=== PATIENT | female | born 1960 | race Caucasian/White ===

== ENCOUNTER 2017-02-02 06:46 | Day surgery (SDC) | payer MEDICAID ==
[2017-02-02] MEDS ORDERED: Sodium Chloride 0.9% 1,000 ML IV SCH (07:30)
[2017-02-02] MEDS ORDERED: Midazolam 1 MG/ML 2 ML SDV ONE (08:04)
[2017-02-02] MEDS ORDERED: fentaNYL 100 MCG/2 ML SDV ONE (08:04)
[2017-02-02] MEDS ORDERED: Propofol 200 MG/20 ML SDV ONE (08:04)
[2017-02-02 09:48] VITALS: BP 127/78
--- NOTE | 2017-02-02 12:46 | OR ---
DATE OF PROCEDURE: 02/02/2017 PROCEDURE: Colonoscopy. FINDINGS: Sigmoid colon polyp, approximately 8 mm, completely removed using hot snare. COMPLICATION: None. LOCATION MAN: None. ANESTHESIA: MAC. PREOPERATIVE DIAGNOSIS: Screening colonoscopy. POSTOPERATIVE DIAGNOSIS: Screening colonoscopy. PROCEDURE IN DETAIL: The patient was placed in left lateral decubitus position. Digital rectal exam was performed without abnormality. The scope was then introduced and advanced atraumatically to the ileocecal valve. A photo was taken. The scope was brought back through the remainder of the colon. The patient had 1 polyp, which was completely removed using hot snare. No abnormalities were noted on removal. No abnormalities on retroflexion. No diverticulosis. No masses, no blood. The patient tolerated the procedure well. Erasto Day MD /[id number]
== END 2017-02-02 09:53 | disposition home or self-care (01) ==
LOC: JP.SDS 06:46
PROVIDERS: ATTEND Surgery
DX: Z12.11 Encounter for screening for malignant neoplasm of colon (principal); D12.5 Benign neoplasm of sigmoid colon; F10.10 Alcohol abuse, uncomplicated; N92.6 Irregular menstruation, unspecified; Z79.3 Long term (current) use of hormonal contraceptives
CPT/HCPCS: 45385; J2250; J2704; J3010; J7040; 88305

== ENCOUNTER 2020-10-01 07:31 | Day surgery (SDC) | payer MEDICAID ==
[2020-10-01] MEDS ORDERED: fentaNYL 100 MCG/2 ML SDV ONE (07:53)
[2020-10-01] MEDS ORDERED: Propofol 200 MG/20 ML SDV ONE (07:53)
[2020-10-01] MEDS ORDERED: Midazolam 1 MG/ML 2 ML SDV ONE (07:53)
[2020-10-01] MEDS ORDERED: Dextrose 5%-Lactated Ringers 1,000 ML IV SCH (08:30)
[2020-10-01 11:09] VITALS: BP 113/71; PULSE 53
--- NOTE | 2020-10-07 16:30 | OR ---
DATE OF PROCEDURE: 10/01/2020 SURGEON: Pasha Moore MD PREOPERATIVE DIAGNOSIS: History of colon polyps. POSTOPERATIVE DIAGNOSIS: A single recurrent cecal polyp (tissue obliterated by electrocautery). OPERATIVE PROCEDURE: Flexible colonoscopy with polypectomy by snare technique. SUMMARY: This is a 60-year-old female presenting for followup colonoscopy. In 2017, she had a polyp removed per Dr. aGrcia. grandmother with positive history of colon carcinoma. Plan is to proceed with colonoscopy with biopsies and/or polypectomy as indicated. Potential risks including bleeding and perforation were discussed, and the patient wishes to proceed. DETAILS OF PROCEDURE: The patient was taken to the operating room and placed in a left lateral decubitus position. IV sedation was administered, after which the initial digital rectal exam was performed and was unremarkable. Colonoscope was then passed into the rectum with retroflexion revealing uncomplicated hemorrhoidal columns. Scope was eventually passed to the level of the cecum. The prep was quite good. To that level, there were no areas of diverticula and no areas of colitis. A single quite small polyp measuring around 1 to 2 mm was present at the base of the cecum. This was encircled with cautery snare and removed by that means. The tissue involved was quite friable and appeared to be more or less obliterated by the electrocautery process as well as through the suction apparatus, so no tissue was able to be sent for histologic evaluation, but the polyp would be so small that it will be almost certainly benign. At that point, the scope was withdrawn. No additional problems were noted and the procedure then concluded. Recommendation would be to repeat the colonoscopy in 3 years. Pasha Moore MD /[id number]
== END 2020-10-01 11:10 | disposition home or self-care (01) ==
LOC: JP.SDS 07:31
PROVIDERS: ATTEND Surgery
DX: Z12.11 Encounter for screening for malignant neoplasm of colon (principal); K63.5 Polyp of colon
CPT/HCPCS: 45385; J2250; J2704; J3010; J7121